=== PATIENT | male | born 1980 ===

== ENCOUNTER 2018-05-04 20:06 | Emergency (ER) | payer OTHER ==
[~2018-05-04 20:06] MED LIST: ISOVUE-370 76%-LOCM 1 ML ONE
[2018-05-04] MEDS ORDERED: Morphine 4 MG/ML VIAL ONE (20:21)
[2018-05-04] MEDS ORDERED: Ondansetron PF 4 MG/2 ML Vial ONE (20:22)
[2018-05-04] MEDS ORDERED: diphenhydrAMINE 50 MG/ML VIAL ONE (20:28)
[2018-05-04] MEDS ORDERED: methylPREDNISolone Sod Succ/PF 125 MG/2 ML VIAL ONE (20:28)
[2018-05-04] MEDS ORDERED: Famotidine/PF 20 mg/2ml Vial ONE (20:29)
[2018-05-04 20:49] LABS: Hemoglobin 12.3 g/dL (14.0-18.0); Mean Corpuscular HGB CONC 32.2 g/dL (32.0-36.0); Mean Corpuscular Hemoglobin 28.2 pg (27.0-31.0); Mean Corpuscular Volume 87.6 fL (78.0-98.0); Mean Platelet Volume 6.7 fL (7.4-10.4); Platelet Count 392 thou/uL (130-400); RBC Distribution Width 14.6 % (11.5-14.5); Red Blood Cell (RBC) Count 4.37 mill/uL (4.70-6.10)
[2018-05-04 20:53] LABS: Band 2 % (5-11); Lymphocytes 23 % (21-51); MDiff Complete? YES; Monocytes 6 % (0-10); Neutrophil 69 % (42-75)
[2018-05-04 20:55] LABS: ALT (SGPT) 14 U/L (8-55); AST (SGOT) 12 U/L (5-34); Albumin 4.1 g/dL (3.5-5.0); Alkaline Phosphatase 119 U/L (40-150); Anion Gap 16 mmol/L (10-20); BUN (Urea Nitrogen) 20 mg/dL (8.9-20.6); Bilirubin, Total 0.2 mg/dL (0.2-1.2); Calc. Creatinine Clearance 0 mL/min (70-130); Carbon Dioxide 23 mmol/L (22-29); Chloride 106 mmol/L (98-107); Estimated GFR-MDRD 88; Globulin 2.9 g/dL (2.4-3.5); Glucose 106 mg/dL (70-105); Potassium 3.8 mmol/L (3.5-5.1); Sodium 141 mmol/L (136-145)
--- NOTE | 2018-05-04 21:18 | RAD ---
PORTABLE AP CHEST X-RAY 05/04/18 HISTORY: Chest pain with radiation of pain to upper mid back. COMPARISON: 04/30/18. FINDINGS: The cardiac silhouette and pulmonary vasculature are within normal limits. There is minimal linear at electasis at the left lung base. The lungs otherwise appear clear. There has been no other interval c hange from the prior exam. IMPRESSION: No acute cardiopulmonary process. POS: [facility]
[2018-05-04] MEDS ORDERED: Lidocaine Viscous Sol 2% 15 ml UD Cup ONE (21:29)
[2018-05-04] MEDS ORDERED: Mag-Al 1200 mg/1200 mg/30 ML UDCUP ONE (21:29)
[2018-05-04] MEDS ORDERED: HYDROcodone/Acetaminophen 5/325 mg Tablet ONE (22:05)
--- NOTE | 2018-05-04 22:28 | CT ---
CT ANGIOGRAM CHEST AND ABDOMEN WITH IV CONTRAST AND 3D RECONSTRUCTIONS: 05/04/18 HISTORY: Chest pain with radiation of pain to upper left back. Pain has been present for three days. Pain is d escribed as a tearing sensation. COMPARISON: None available. FINDINGS: The thoracic and abdominal aorta are normal in caliber without evidence of an aortic dissection. Ther e is a normal arrangement of the great vessels at the aortic arch which appear normal in caliber. Mes enteric vessels as well as single bilateral renal arteries are patent. There is a patent single left and two patent right renal arteries. Incidental note is made of a retroaortic left renal vein. Small amount of fluid is seen within the esophagus which could be related to esophageal reflux. Stoma ch is filled with particulate matter probably related to recent ingestion of a meal. A few tiny blebs are seen within the lung apices bilaterally. There is a tiny less than 4 mm pleural based nodular density at the lateral aspect right upper lobe. There are a few scattered round glass d ensities seen within the upper lobes bilaterally as well as involving the right middle lobe. These fi ndings are overall nonspecific, infectious or inflammatory process is a possibility. There are a few pleural based nodular densities along the major fissure on the left, largest measuring approximately 5 mm. A few additional tiny nodular densities are seen posteriorly within the lower lobes bilaterally as well as along the superior aspect of the major fissure on the right. No pleural effusion is prese nt. There is no evidence of mediastinal lymphadenopathy. Post cholecystectomy changes are noted. There is a low density focus measuring 1.6 cm in the mid port ion right kidney. While this is difficult to characterize on this exam, probably represents a small c yst. However, followup ultrasound examination is suggested on a nonemergent basis. The liver, spleen, pancreas, bilateral adrenal glands and left kidney demonstrate a normal CT appeara nce. A small amount of retained fecal material is seen throughout the colon. A few mildly prominent loops of fluid filled small bowel are seen in the left abdomen which is nonspecific. There are no findings to suggest that there is a small bowel obstruction. No enlarged lymph nodes are seen, there is increased number of aortocaval lymph nodes with suggestion of slight stranding in the region of the slight increased lymph nodes. This is overall nonspecific but followup evaluation is suggested. IMPRESSION: 1. Scattered ground glass densities within the lungs bilaterally which are nonspecific but may b e related to infectious or inflammatory process. Followup evaluation is recommended to ensure resolut ion. 2. Nonspecific increased number of aortocaval lymph nodes with slight stranding seen in the [place] on of the area of increased number of lymph nodes. No enlarged lymph node is seen. This is also nonsp ecific and followup CT abdomen is recommended. 3. Difficult to characterize hypodense lesion right kidney statistically likely representing a c yst. This can be re-evaluated on follow up CT abdomen and pelvis. 4. Thoracic and abdominal aorta are normal in caliber without evidence of an aortic dissection. 5. Tiny pleural based nodular densities in the lungs bilaterally. 6. Cholecystectomy. 7. Tiny fat containing umbilical hernia. Code T POS: [facility]
== END 2018-05-04 22:22 | disposition home or self-care (01) ==
LOC: ERS 20:06
DX: K21.9 Gastro-esophageal reflux disease without esophagitis (principal); Z79.899 Other long term (current) drug therapy; F17.210 Nicotine dependence, cigarettes, uncomplicated
CPT/HCPCS: 71045; 71275; 80053; 84484; 85025; 93005; 96374; 96375; J1200; J2270; J2405; J2930; S0028